=== PATIENT | male | born 1980 | race Caucasian/White ===

== ENCOUNTER 2020-07-25 05:59 | Day surgery (SDC) | payer OTHER ==
[~2020-07-25] VITALS: Ht 177.8 cm; Wt 101.5 kg
[2020-07-25] MEDS ORDERED: NONE PER PT (06:52)
[2020-07-25 06:54] VITALS: BP 138/95
[2020-07-25] MEDS ORDERED: SODIUM CHLORIDE 0.9% 1,000 ML IV SCH (07:00)
[2020-07-25 07:31] LABS: INTERNATIONAL NORMALIZED RATIO 1.03 (0.93-1.1)
[2020-07-25] MEDS ORDERED: LIDOCAINE 1%, 10ML ONE (07:57)
[2020-07-25] MEDS ORDERED: FLUMAZENIL 0.1 MG/1 ML, 5ML ONE (08:21)
[2020-07-25] MEDS ORDERED: MIDAZOLAM 1 MG/ML, 5ML ONE (08:21)
[2020-07-25] MEDS ORDERED: FENTANYL PF 100 MCG/2ML ONE ×2 (08:21)
[2020-07-25] MEDS ORDERED: NALOXONE 1 MG/ML, 2ML ONE (08:21)
[2020-07-25] MEDS ORDERED: HYDROcodone/APAP 5/325 TABLET PO PRN (10:00)
[2020-07-25] MEDS ORDERED: HYDROcodone/APAP 5/325 TABLET ONE (10:06)
== END 2020-07-25 11:30 | disposition home or self-care (01) ==
LOC: OUT 05:59
PROVIDERS: ATTEND Family Medicine
DX: R94.5 Abnormal results of liver function studies (principal); C7A.8 Other malignant neuroendocrine tumors; I10 Essential (primary) hypertension; Z79.899 Other long term (current) drug therapy
CPT/HCPCS: 36415; 47000; 77012; 85610; 88307; 88341; 88342; 88360; 99156; 99157; J2250; J3010; J7030; J2310

== ENCOUNTER 2020-10-07 03:42 | Inpatient (IN) | payer OTHER ==
[~2020-10-07] VITALS: Ht 177.8 cm; Wt 95.6 kg
[~2020-10-07 03:42] MED LIST: NONE PER PT
[2020-10-07] MEDS ORDERED: ONDANSETRON 2MG/ML, 2ML ONE ×2 (04:25→06:00)
[2020-10-07] MEDS ORDERED: MORPHINE SULFATE 4 MG/ML, 1ML ONE (04:25)
[2020-10-07] MEDS ORDERED: MORPHINE SULFATE 4 MG/ML, 1ML IVPush PRN (04:30)
[2020-10-07] MEDS ORDERED: ONDANSETRON 2MG/ML, 2ML IVPush ONE ×2 (04:30→06:00)
[2020-10-07] MEDS ORDERED: SODIUM CHLORIDE 0.9% 1,000ML IVBOLUS ONE (04:30)
[2020-10-07 04:42] LABS: BASOPHILS % (AUTO) 0 % (0-1); EOSINOPHILS % (AUTO) 1 % (1-7); LYMPHOCYTES % (AUTO) 8 % (22-44); MEAN CORPUSCULAR HEMOGLOBIN 31.5 pg (27.5-34.5); MEAN CORPUSCULAR HGB CONC 34.7 g/dL (33.2-36.2); MEAN PLATELET VOLUME 9.7 fL (7.4-10.4); MONOCYTES % (AUTO) 5 % (2-9); NEUTROPHILS % (AUTO) 86 % (42-75); PLATELET COUNT 219 x10^3/uL (130-400); RED BLOOD COUNT 4.95 x10^6/uL (4.38-5.82); RED CELL DISTRIBUTION WIDTH 13.3 % (9.4-14.8)
[2020-10-07 04:55] LABS: ALBUMIN 3.3 g/dL (3.4-5.0); ANION GAP 6 mmol/L (5-15); CALCIUM 8.3 mg/dL (8.5-10.1); CHLORIDE 112 mmol/L (98-107)
[2020-10-07 04:58] LABS: ALANINE AMINOTRANSFERASE 65 U/L (12-78); ALKALINE PHOSPHATASE 114 U/L (45-117); BILIRUBIN,TOTAL 0.8 mg/dL (0.2-1.0); CREATININE 0.98 mg/dL (0.7-1.3); TOTAL PROTEIN 7.7 g/dL (6.4-8.2)
[2020-10-07] MEDS ORDERED: OMNIPAQUE 350 MG/ML, 100ML BOTTLE ONE (05:30)
[2020-10-07] MEDS ORDERED: HYDROmorphone 1 MG/ML, 1ML INJ ONE (05:51)
[2020-10-07] MEDS ORDERED: HYDROmorphone 1 MG/ML, 1ML INJ IV ONE (06:00)
--- NOTE | 2020-10-07 07:02 | NUR ---
REPORT GIVEN TO JAZMYN RAE
--- NOTE | 2020-10-07 07:18 | NUR ---
REPORT GIVEN TO JAZMYN ANGELES FOR TRANSFER OF PATIENT CARE.
--- NOTE | 2020-10-07 07:29 | NUR ---
PATIENT TRANSFERRED TO MEDICAL/ONCOLOGY IN STABLE CONDITION VIA GURNEY WITH ARTIST BLACKSMITH. ALL PATIENT BELONGINGS TAKEN WITH PATIENT TO FLOOR.
[2020-10-07] MEDS ORDERED: ACETAMINOPHEN 325 MG TABLET PO PRN (07:30)
[2020-10-07] MEDS ORDERED: OXYcodone IR 5MG TABLET PO PRN (07:30)
[2020-10-07] MEDS ORDERED: morphine SULFATE 10 MG/ML, 1ML IVPush PRN (07:30)
[2020-10-07 07:33] VITALS: BP 116/75
[2020-10-07] MEDS: POTASSIUM CHLORIDE 20 MEQ in LACTATED RINGERS 1,000 ML IV SCH ×2 (07:58→18:19)
[2020-10-07 08:00] VITALS: BP 116/75
[2020-10-07 12:41] VITALS: BP 126/78
[2020-10-07] MEDS: ENOXAPARIN 40 MG/0.4 ML SQ SCH (18:00)
[2020-10-07 19:12] VITALS: BP 136/92
[2020-10-08] VITALS (7 sets, daily range): BP systolic 130–170; BP diastolic 83–122
[2020-10-08 05:04] LABS: BASOPHILS % (AUTO) 0 % (0-1); EOSINOPHILS % (AUTO) 1 % (1-7); LYMPHOCYTES % (AUTO) 16 % (22-44); MEAN CORPUSCULAR HEMOGLOBIN 31.7 pg (27.5-34.5); MEAN CORPUSCULAR HGB CONC 34.8 g/dL (33.2-36.2); MEAN PLATELET VOLUME 10.1 fL (7.4-10.4); MONOCYTES % (AUTO) 7 % (2-9); NEUTROPHILS % (AUTO) 76 % (42-75); PLATELET COUNT 186 x10^3/uL (130-400); RED BLOOD COUNT 4.61 x10^6/uL (4.38-5.82); RED CELL DISTRIBUTION WIDTH 13.2 % (9.4-14.8)
[2020-10-08 05:17] LABS: ALANINE AMINOTRANSFERASE 52 U/L (12-78); ALBUMIN 2.8 g/dL (3.4-5.0); ANION GAP 4 mmol/L (5-15); CALCIUM 7.8 mg/dL (8.5-10.1); CHLORIDE 111 mmol/L (98-107); CREATININE 0.86 mg/dL (0.7-1.3)
[2020-10-08 05:19] LABS: ALKALINE PHOSPHATASE 97 U/L (45-117); BILIRUBIN,TOTAL 0.9 mg/dL (0.2-1.0); TOTAL PROTEIN 6.6 g/dL (6.4-8.2)
[2020-10-08] MEDS: POTASSIUM CHLORIDE 20 MEQ in LACTATED RINGERS 1,000 ML IV SCH ×2 (05:36→22:12)
[2020-10-08 11:53] LABS: CLOSTRIDIUM DIFFICILE ANTIGEN NEGATIVE; CLOSTRIDIUM DIFFICILE TOXIN NEGATIVE (Negative)
[2020-10-08] MEDS ORDERED: HYDROmorphone 1 MG/ML, 1ML INJ ONE (12:18)
[2020-10-08 12:22] LABS: TROPONIN I < 0.015 ng/mL (0.000-0.045)
[2020-10-08] MEDS: ONDANSETRON 2MG/ML, 2ML IVPush PRN (12:23)
[2020-10-08] MEDS ORDERED: MORPHINE SULFATE 4 MG/ML, 1ML IVPush ONE (12:30)
[2020-10-08] MEDS ORDERED: HYDROmorphone 1 MG/ML, 1ML INJ IV ONE (12:30)
[2020-10-08] MEDS ORDERED: OMNIPAQUE 350 MG/ML, 100ML BOTTLE ONE (15:14)
[2020-10-08] MEDS: ENOXAPARIN 40 MG/0.4 ML SQ SCH (18:22)
[2020-10-08] MEDS: HYDROmorphone 1 MG/ML, 1ML INJ IV PRN (22:07)
[2020-10-09] MEDS ORDERED: DIPHENHYDRAMINE 25 MG CAPSULE PO ONE (00:30)
[2020-10-09 03:10] VITALS: BP 136/87
[2020-10-09 05:55] LABS: BASOPHILS % (AUTO) 0 % (0-1); EOSINOPHILS % (AUTO) 2 % (1-7); LYMPHOCYTES % (AUTO) 21 % (22-44); MEAN CORPUSCULAR HEMOGLOBIN 31.5 pg (27.5-34.5); MEAN CORPUSCULAR HGB CONC 34.3 g/dL (33.2-36.2); MEAN PLATELET VOLUME 10.1 fL (7.4-10.4); MONOCYTES % (AUTO) 7 % (2-9); NEUTROPHILS % (AUTO) 70 % (42-75); PLATELET COUNT 209 x10^3/uL (130-400); RED BLOOD COUNT 4.97 x10^6/uL (4.38-5.82); RED CELL DISTRIBUTION WIDTH 13.3 % (9.4-14.8)
[2020-10-09 06:05] LABS: ALANINE AMINOTRANSFERASE 48 U/L (12-78); ALBUMIN 2.6 g/dL (3.4-5.0); ANION GAP 4 mmol/L (5-15); CALCIUM 7.8 mg/dL (8.5-10.1); CHLORIDE 109 mmol/L (98-107)
[2020-10-09 06:07] LABS: ALKALINE PHOSPHATASE 95 U/L (45-117); BILIRUBIN,TOTAL 0.6 mg/dL (0.2-1.0); CREATININE 0.72 mg/dL (0.7-1.3); TOTAL PROTEIN 6.5 g/dL (6.4-8.2)
[2020-10-09 07:14] VITALS: BP 144/96
[2020-10-09] MEDS: POTASSIUM CHLORIDE 20 MEQ in LACTATED RINGERS 1,000 ML IV SCH ×2 (08:50→19:18)
[2020-10-09] MEDS: ONDANSETRON 2MG/ML, 2ML IVPush PRN (09:34)
[2020-10-09] MEDS: HYDROmorphone 1 MG/ML, 1ML INJ IV PRN (09:44)
[2020-10-09 10:22] LABS: CRYPTOSPORIDIUM ANTIGEN Negative (Negative)
[2020-10-09 14:00] VITALS: BP 141/96
[2020-10-09] MEDS ORDERED: GOLYTELY 4,000ML ORAL.SOL PO ONE (17:00)
[2020-10-09] MEDS: ENOXAPARIN 40 MG/0.4 ML SQ SCH (18:03)
[2020-10-09 19:34] VITALS: BP 116/80
[2020-10-10 00:49] VITALS: BP 137/78
[2020-10-10] MEDS: POTASSIUM CHLORIDE 20 MEQ in LACTATED RINGERS 1,000 ML IV SCH ×2 (06:16→16:51)
[2020-10-10 07:16] VITALS: BP 123/80
[2020-10-10 13:03] VITALS: BP 120/81
[2020-10-10] MEDS: ENOXAPARIN 40 MG/0.4 ML SQ SCH (16:52)
[2020-10-10] MEDS ORDERED: GOLYTELY 4,000ML ORAL.SOL PO ONE (17:00)
[2020-10-10 18:43] VITALS: BP 132/93
[2020-10-11 01:06] VITALS: BP 134/84
[2020-10-11] MEDS: POTASSIUM CHLORIDE 20 MEQ in LACTATED RINGERS 1,000 ML IV SCH ×2 (03:20→14:06)
[2020-10-11 07:25] VITALS: BP 136/87
[2020-10-11] MEDS ORDERED: CHLORHEXIDINE 15 ML UDC ONE (07:26)
[2020-10-11] MEDS ORDERED: MIDAZOLAM 1 MG/ML, 2ML ONE (08:11)
[2020-10-11] MEDS ORDERED: KETOROLAC 30 MG/1 ML IV PRN (09:00)
[2020-10-11] MEDS ORDERED: PROMETHAZINE 25 MG/ML, 1ML IV PRN (09:00)
[2020-10-11] MEDS ORDERED: DIAZEPAM 5 MG/ML, 2ML IV PRN ×2 (09:00)
[2020-10-11] MEDS ORDERED: FENTANYL PF 100 MCG/2ML IV PRN (09:00)
[2020-10-11] MEDS ORDERED: HYDROmorphone 1 MG/ML, 1ML INJ IV PRN (09:00)
[2020-10-11] MEDS ORDERED: OXYcodone 5 MG/5 ML ORAL.SOL UDC PO PRN (09:00)
[2020-10-11] MEDS ORDERED: LABETALOL 5MG/ML, 20ML IV PRN (09:00)
[2020-10-11] MEDS ORDERED: ALBUTEROL SULFATE 2.5 MG/3 ML NPPB PRN (09:00)
[2020-10-11] MEDS ORDERED: hydrALAzine 20 MG/ML, 1ML IV PRN (09:00)
[2020-10-11] MEDS ORDERED: METOCLOPRAMIDE 5 MG/ML, 2ML IV PRN (09:00)
[2020-10-11] MEDS ORDERED: ONDANSETRON 2MG/ML, 2ML IVPush PRN (09:00)
[2020-10-11] MEDS ORDERED: MEPERIDINE/PF 25MG/0.5ML IVPush PRN (09:00)
[2020-10-11] MEDS ORDERED: PANT40TA3 PO (12:42)
[2020-10-11 12:52] VITALS: BP 125/88
[2020-10-11] MEDS ORDERED: GOLYTELY 4,000ML ORAL.SOL PO ONE (17:30)
[2020-10-12] MEDS ORDERED: OCTR50AM IM (07:38)
== END 2020-10-11 15:50 | disposition home or self-care (01) | DRG 845 ==
LOC: ED 07:00 → SUATTDRO 07:12 → EDIP 07:27 → 4NW 07:28
PROVIDERS: ADMIT Internal Medicine Infectious Disease; ATTEND Internal Medicine
PROC: 0DJD8ZZ Inspection of Lower Intestinal Tract, Via Natural or Artificial Opening Endoscopic (ICD-10-PCS; 2020-10-11)
PROC: 0DB68ZZ Excision of Stomach, Via Natural or Artificial Opening Endoscopic (ICD-10-PCS; principal; 2020-10-11 08:00)
DX: C7B.8 Other secondary neuroendocrine tumors (principal); Z20.822 Contact with and (suspected) exposure to COVID-19; C78.7 Secondary malignant neoplasm of liver and intrahepatic bile duct; E66.3 Overweight; E86.0 Dehydration; I10 Essential (primary) hypertension; K52.9 Noninfective gastroenteritis and colitis, unspecified; K57.90 Diverticulosis of intestine, part unspecified, without perforation or abscess without bleeding; N28.1 Cyst of kidney, acquired; K31.7 Polyp of stomach and duodenum; K64.8 Other hemorrhoids
CPT/HCPCS: 36415; 71045; 74174; 74177; 74250; 80053; 83497; 83605; 83690; 84260; 84484; 85025; 85379; 87040; 87046; 87324; 87328; 87329; 87427; 87635; 88305; 93005; 93970; 96374; 96375; G0378; J1170; J1650; J2250; J2405; J3480; Q9967; J2270; J7030; J7120; Q0163

== ENCOUNTER 2020-10-12 03:54 | Inpatient (IN) | payer OTHER ==
[~2020-10-12] VITALS: Ht 180.3 cm; Wt 102.2 kg
[~2020-10-12 03:54] MED LIST changes: +PANT40TA3 PO
--- NOTE | 2020-10-12 04:13 | NUR ---
Pt arrived after to ED after being discharged today due to reoccurance of symptoms (N/V/D) after eating dinner. Pt states that after eating all symptoms came back and his abdominal pain is what made him come back. Pt visably wincing but able to speak in full sentences, significant other at bedside, place on BP and O2 monitors, VSS, no visable vomitting while in ED, WCTM.
[2020-10-12] MEDS ORDERED: MORPHINE SULFATE 4 MG/ML, 1ML ONE (04:19)
[2020-10-12] MEDS ORDERED: ONDANSETRON 2MG/ML, 2ML ONE (04:19)
[2020-10-12] MEDS ORDERED: SODIUM CHLORIDE FLUSH 10ML SYR IVF ONE (04:30)
[2020-10-12] MEDS ORDERED: MORPHINE SULFATE 4 MG/ML, 1ML IVPush PRN (04:30)
[2020-10-12] MEDS ORDERED: ONDANSETRON 2MG/ML, 2ML IVPush ONE (04:30)
--- NOTE | 2020-10-12 04:59 | NUR ---
Pt given morphine for pain, stating "morphine doesn't work, only dilaudid" pt asked if they still want the morphine which he replied "yes". Pt told that we can try the med that is ordered and reassess pain to see if we need further action. Pt agreed to this intervention, WCYESSENIA
[2020-10-12 05:00] LABS: BASOPHILS % (AUTO) 0 % (0-1); EOSINOPHILS % (AUTO) 2 % (1-7); LYMPHOCYTES % (AUTO) 9 % (22-44); MEAN CORPUSCULAR HEMOGLOBIN 31.6 pg (27.5-34.5); MEAN CORPUSCULAR HGB CONC 34.7 g/dL (33.2-36.2); MEAN PLATELET VOLUME 9.6 fL (7.4-10.4); MONOCYTES % (AUTO) 5 % (2-9); NEUTROPHILS % (AUTO) 84 % (42-75); PLATELET COUNT 236 x10^3/uL (130-400); RED BLOOD COUNT 5.34 x10^6/uL (4.38-5.82); RED CELL DISTRIBUTION WIDTH 13.5 % (9.4-14.8)
[2020-10-12 05:08] LABS: ALANINE AMINOTRANSFERASE 56 U/L (12-78); ALBUMIN 3.2 g/dL (3.4-5.0); ANION GAP 4 mmol/L (5-15); CALCIUM 8.6 mg/dL (8.5-10.1); CHLORIDE 104 mmol/L (98-107); CREATININE 1.14 mg/dL (0.7-1.3)
[2020-10-12 05:10] LABS: ALKALINE PHOSPHATASE 104 U/L (45-117); BILIRUBIN,TOTAL 0.6 mg/dL (0.2-1.0); TOTAL PROTEIN 7.5 g/dL (6.4-8.2)
[2020-10-12] MEDS ORDERED: KETOROLAC 30 MG/1 ML ONE (05:24)
[2020-10-12] MEDS ORDERED: HYDROmorphone 1 MG/ML, 1ML INJ ONE (05:25)
[2020-10-12] MEDS ORDERED: KETOROLAC 30 MG/1 ML IVPush ONE (05:30)
[2020-10-12] MEDS ORDERED: LACTATED RINGERS 1,000 ML IV SCH (05:30)
[2020-10-12] MEDS: HYDROmorphone 2 MG/ML, 1ML IVPush PRN ×2 (05:31→19:55)
--- NOTE | 2020-10-12 05:36 | NUR ---
Pt placed on 2L NC due to desat while asleep, pt postioned for comfort, VSS
--- NOTE | 2020-10-12 06:52 | NUR ---
Report to Desiree ELDRIDGE
--- NOTE | 2020-10-12 06:53 | NUR ---
Report from JAZMYN Krueger. This RN to assume full care. Pt laying in bed, eyes closed resps even and unlabored. VSS. Fluids infusing.
[2020-10-12] MEDS ORDERED: OCTR50AM IM (07:38)
[2020-10-12] MEDS ORDERED: HYDROcodone/APAP 5/325 TABLET PO PRN (08:30)
[2020-10-12] MEDS ORDERED: KETOROLAC 30 MG/1 ML IV PRN (08:30)
[2020-10-12] MEDS: SODIUM CHLORIDE 0.9% 1,000 ML IV SCH ×3 (08:30→19:56)
[2020-10-12] MEDS ORDERED: ONDANSETRON 2MG/ML, 2ML IVPush PRN (08:30)
[2020-10-12] MEDS: HEPARIN 5,000 UNITS/ML, 1ML SQ SCH ×2 (09:21→17:21)
[2020-10-12] MEDS: PANTOPRAZOLE 40 MG IV IVPush SCH ×2 (09:21→20:59)
[2020-10-12 14:03] VITALS: BP 113/82
[2020-10-12 14:07] LABS: MICROSCOPIC NOT IND
[2020-10-12 19:53] VITALS: BP 135/88
[2020-10-13 00:29] VITALS: BP 115/76
[2020-10-13] MEDS: HEPARIN 5,000 UNITS/ML, 1ML SQ SCH ×4 (01:20→16:12)
[2020-10-13] MEDS: SODIUM CHLORIDE 0.9% 1,000 ML IV SCH ×2 (04:46→14:28)
[2020-10-13 07:32] LABS: MEAN CORPUSCULAR HEMOGLOBIN 31.2 pg (27.5-34.5); MEAN CORPUSCULAR HGB CONC 33.7 g/dL (33.2-36.2); MEAN PLATELET VOLUME 10.3 fL (7.4-10.4); PLATELET COUNT 239 x10^3/uL (130-400); RED BLOOD COUNT 5.64 x10^6/uL (4.38-5.82); RED CELL DISTRIBUTION WIDTH 13.6 % (9.4-14.8)
[2020-10-13 07:33] VITALS: BP 101/69
[2020-10-13 07:33] LABS: ALBUMIN 2.5 g/dL (3.4-5.0); ANION GAP 7 mmol/L (5-15); CHLORIDE 109 mmol/L (98-107)
[2020-10-13 07:41] LABS: ALANINE AMINOTRANSFERASE 50 U/L (12-78); ALKALINE PHOSPHATASE 89 U/L (45-117); BILIRUBIN,TOTAL 0.4 mg/dL (0.2-1.0); CREATININE 0.82 mg/dL (0.7-1.3)
[2020-10-13 07:48] LABS: BAND#(MANUAL) 1.22 x10^3/uL; BANDS%(MANUAL) 10 % (0-7); EOS#(MANUAL) 0.37 x10^3/uL (0.0-0.4); EOS% (MANUAL) 3 % (1-7); LYMPH#(MANUAL) 3.05 x10^3/uL (1-3.4); LYMPHS% (MANUAL) 25 % (22-44); METAMYELOCYTES# (MANUAL) 0.24 x10^3/uL (0-0); METAMYELOCYTES% (MANUAL) 2 % (0-1); MONOS#(MANUAL) 0.98 x10^3/uL (0.3-2.7); MONOS% (MANUAL) 8 % (2-9); REACTIVE LYMPHS # (MANUAL) 0.24 x10^3/uL (0-0); REACTIVE LYMPHS % (MANUAL) 2 % (0-0); SEGS% (MANUAL) 50 % (42-75)
[2020-10-13 07:49] LABS: <PLATELET ESTIMATE> ADEQUATE; <PLT MORPHOLOGY> NORMAL PLT MORPH; ANISOCYTOSIS 1+
[2020-10-13] MEDS: PANTOPRAZOLE 40 MG IV IVPush SCH ×2 (08:51→21:38)
[2020-10-13] MEDS ORDERED: DIPHENOXYLATE/ATROPINE TABLET PO PRN (11:00)
[2020-10-13] MEDS ORDERED: HYDROmorphone 2 MG/ML, 1ML IVPush PRN (11:00)
[2020-10-13] MEDS: DIPHENOXYLATE/ATROPINE TABLET PO SCH ×3 (11:50→21:38)
[2020-10-13 13:26] VITALS: BP 113/75
[2020-10-13 19:44] VITALS: BP 116/79
[2020-10-14] MEDS: SODIUM CHLORIDE 0.9% 1,000 ML IV SCH (00:59)
[2020-10-14] MEDS: HEPARIN 5,000 UNITS/ML, 1ML SQ SCH ×2 (01:00→09:55)
[2020-10-14 02:10] VITALS: BP 101/67
[2020-10-14 04:41] LABS: BASOPHILS % (AUTO) 0 % (0-1); EOSINOPHILS % (AUTO) 7 % (1-7); LYMPHOCYTES % (AUTO) 34 % (22-44); MEAN CORPUSCULAR HEMOGLOBIN 31.4 pg (27.5-34.5); MEAN CORPUSCULAR HGB CONC 34.5 g/dL (33.2-36.2); MEAN PLATELET VOLUME 9.7 fL (7.4-10.4); MONOCYTES % (AUTO) 10 % (2-9); NEUTROPHILS % (AUTO) 49 % (42-75); PLATELET COUNT 214 x10^3/uL (130-400); RED BLOOD COUNT 4.96 x10^6/uL (4.38-5.82); RED CELL DISTRIBUTION WIDTH 13.4 % (9.4-14.8)
[2020-10-14 04:53] LABS: ALANINE AMINOTRANSFERASE 43 U/L (12-78); ALBUMIN 2.3 g/dL (3.4-5.0); ANION GAP 5 mmol/L (5-15); CALCIUM 7.6 mg/dL (8.5-10.1); CHLORIDE 109 mmol/L (98-107); CREATININE 0.95 mg/dL (0.7-1.3)
[2020-10-14 04:55] LABS: ALKALINE PHOSPHATASE 76 U/L (45-117); BILIRUBIN,TOTAL 0.4 mg/dL (0.2-1.0); TOTAL PROTEIN 5.5 g/dL (6.4-8.2)
[2020-10-14 08:00] VITALS: BP 110/76
[2020-10-14] MEDS ORDERED: ONDA4TAB13 SL (09:29)
[2020-10-14] MEDS ORDERED: DIPH1TAB PO ×2 (09:29→09:30)
[2020-10-14] MEDS ORDERED: OXYC-302 PO ×2 (09:29→09:31)
[2020-10-14] MEDS: PANTOPRAZOLE 40 MG IV IVPush SCH (09:56)
== END 2020-10-14 10:59 | disposition home or self-care (01) | DRG 645 ==
LOC: ED 04:33 → EDIP 06:52 → 4NW 07:45 → DCLOUNGE 10-14 10:43
PROVIDERS: ADMIT Internal Medicine; ATTEND Family Medicine
DX: E34.0 Carcinoid syndrome (principal); E66.9 Obesity, unspecified; E86.0 Dehydration; G89.29 Other chronic pain; K31.7 Polyp of stomach and duodenum; K64.8 Other hemorrhoids; D3A.8 Other benign neuroendocrine tumors; Z68.31 Body mass index [BMI] 31.0-31.9, adult
CPT/HCPCS: 36415; 80053; 81003; 83690; 84110; 84120; 85025; 96374; 96375; 99285; G0378; J1170; J1644; J1885; J2405; C9113; J2270; J7030; J7120